=== PATIENT | male | born 2000 | race Caucasian/White ===

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

== ENCOUNTER 2024-09-27 14:31 | Emergency (ER) | payer MEDICAID, SELFPAY ==
[2024-09-27 14:37] VITALS: BP 123/84; PULSE 81; RESP 16; TEMP 36.4; O2SAT 97; BMI 33.5
--- NOTE | 2024-09-27 14:52 | XRR_ITS ---
PROCEDURE INFORMATION: Exam: XR Right Elbow Exam date and time: 09/27/2024 3:05 PM Age: 24 years old Clinical indication: Pain; Elbow; Right; Additional info: Pain/swelling TECHNIQUE: Imaging protocol: Radiologic exam of the right elbow. Views: 3 or more views. COMPARISON: No relevant prior studies available. FINDINGS: Bones/joints: No definite acute fracture or dislocation. Joint spaces are preserved. There appears to be a small elbow joint effusion. Soft tissues: Normal. XR/XR elbow RT min 3V* [id number] IMPRESSION: Small joint effusion. No definite acute osseous findings. MRI could be considered for further assessment if warranted.
--- NOTE | 2024-09-27 14:53 | ED_ITS ---
HPI - Extremity Problem General: Chief complaint: Extremity Injury, Upper Stated complaint: rt elbow Time Seen by Provider: 09/27/24 14:38 Source: patient Mode of arrival: ambulatory Limitations: no limitations History of Present Illness: Patient is a 24-year-old male who presents to ED today with a complaint of right elbow pain and swelling. He feels like he may have injured a tendon . He denies any known injury or trauma although does state he was drinking some buddies before symptoms started. He states I do not remember doing anything stupid . He states he is having pain with full flexion and full extension of the joint. He has not noticed any redness or warmth. Denies IV drug use. He does feel like there is some mild swelling. Feels like swelling was worse yesterday. States he does not do any repetitive movements. He does not work. He does occasionally workout and lift weights. MD Complaint: joint swelling and joint pain Onset (ago): day(s) (2 days) Pain Consistency: constant Location: right and elbow Radiation: none Relieving factors: immobilization Exacerbating factors: range of motion Associated symptoms: Reports no associated symptoms; Deny fever(s) Related Data Home Medications Medication Instructions Recorded Confirmed No Known Home Medications 09/27/24 09/27/24 Allergies Allergy/AdvReac Type Severity Reaction Status Date / Time No Known Allergies Allergy Verified 09/27/24 14:42 Review of Systems Const: Denies: fever(s), chills, body aches, fatigue or malaise Musc: Reports: joint pain (R elbow) and joint swelling (R elbow); Denies: neck pain, back pain, extremity pain, extremity swelling, joint redness or joint warmth Neuro: Denies: numbness in extremities, weakness in extremities or sensory changes [facility] ED PFSH: Social History Smoking and tobacco/nicotine status: current every day tobacco/nicotine user Physical Exam Const: COMMON NORMALS: no acute distress, average body habitus, no limitations, healthy appearing, alert and well nourished GENERAL APPEARANCE: cooperative Neck/C-Spine: COMMON NORMALS: no lymphadenopathy Resp: COMMON NORMALS: normal respiratory effort and clear to auscultation bilaterally AUSCULTATION: clear to auscultation bilaterally Cardio: COMMON NORMALS: regular rate and regular rhythm RATE: regular rate RHYTHM: regular rhythm Extremity: COMMON NORMALS: capillary refill normal and no clubbing, cyanosis or edema GENERAL: Yes normal exam except as noted RIGHT UPPER EXTREMITY: Yes shoulder joint (mild edema; pain with full flexion/extension; otherwise normal ROM) Right shoulder: Yes Right shoulder joint neurovascular exam (normal) and Yes Right shoulder joint other findings (no erythema/warmth; no epitrochlear lymphadenopathy) OTHER: nothing to suggest infection at this time; distally-pulses are normal, cap refill is brisk, and sensation is normal; no single point tenderness to medial or lateral epicondylar regions Neuro: COMMON NORMALS: moves all extremities, no focal motor deficits and no sensory deficits noted SENSORIUM/ORIENTATION: Yes alert Skin: COMMON NORMALS: no rashes or lesions noted GENERAL SKIN EXAM: no rashes or lesions noted TRAUMA: no lacerations or abrasions Course Vital Signs: Vital signs: Vital Signs Temperature 97.5 F L 09/27/24 14:37 Pulse Rate 81 09/27/24 14:37 Respiratory Rate 16 09/27/24 14:37 Blood Pressure 123/84 09/27/24 14:37 Pulse Oximetry 97 09/27/24 14:37 Oxygen Delivery Me thod Room Air 09/27/24 14:37 MDM - Extremity (Nontraumatic) Medical Decision Making Patient is a 24-year-old male here for right elbow pain and swelling over the past 2 days. No known injury or trauma. On exam, he has pain with full flexion and full extension. Mild edema present. R elbow XR, question small nondisplaced radial head fracture only seen on AP view. Joint effusion present. Will sling and have him follow-up with orthopedics. XR interpretation done by ED provider, pending radiology final review Discharge Plan Discharge Patient Disposition: Home Clinical Impression: Pain and swelling of right elbow Condition: Stable Prescriptions: No Action No Known Home Medications Discharge Orders: Discharge ED (Routine); Ordered 09/27/24 Ordered By: Dorothea Wyatt Activity Restrictions/Additional Instructions: As we discussed, I would begin taking 800 mg of Ibuprofen every 6-8 hours to help with swelling and pain. You may apply ice to the elbow for 20 to 30 minutes every other hour. You may wear your sling as needed for discomfort but I would like you to gently/passively move the joint is much as tolerated. As we discussed, if pain does not improve over the next week or so, I will have case management set you up with an orthopedic follow up appointment. Coding Level of Care Code ED Hospital Ward Clerk for Vika Hoffman
[2024-09-27 15:38] VITALS: BP 133/91; PULSE 80; O2SAT 97
--- NOTE | 2024-09-29 07:38 | DCPLANNER ---
messaged ortho for er f/u
== END 2024-09-27 15:44 | disposition home or self-care (01) ==
PROVIDERS: Emergency Provider Physician Assistant
DX: M25.521 Pain in right elbow (principal); Z72.0 Tobacco use
CPT/HCPCS: 73080; 99283